=== PATIENT | male | born 1995 | race African-American/Black ===

== ENCOUNTER 2021-02-10 08:04 | Emergency (ER) | payer SELFPAY ==
--- NOTE | 2021-02-10 08:23 | EDM.PDOC ---
ED HPI GENERAL MEDICAL PROBLEM - General Chief Complaint: Head Injury Stated Complaint: MEDICAL CLEARENCE Time Seen by Provider: 02/10/21 08:10 Source of Information: Reports: Patient, Police History Limitations: Reports: No Limitations - History of Present Illness INITIAL COMMENTS - FREE TEXT/NARRATIVE: 26-year-old male presents to the ED per [place] police officers for medical clearance exam. Apparently they attended his place of residence this morning to serve paperwork in regards to involuntary committal. He ran from the police and thus was tackled to the ground. He presents in handcuffs behind his back. He is alert oriented and answers a few questions but is not overly chatty. He states he does not understand exactly why he has been brought here by the polic e. He denies any recent alcohol or drug use. Patient suffered a contusion to his right lower lip and chin during the incident but states no other injuries. Onset: Today, Sudden Onset Date: 02/10/21 Onset Time: 07:35 Duration: Minutes: Location: Reports: Face (Abrasion to mendez contusion right lower lip) Quality: Reports: Other Severity: Mild (Denies any pain) Improves with: Reports: None Worsens with: Reports: None Context: Reports: Trauma (Blunt force trauma to his mid facial structures when being tackled by police to the ground.). 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 [No Known Home Meds] 02/10/21 [History] Past Medical History - Past Health History Medical/Surgical History: Denies Medical/Surgical History Social & Family History - Tobacco Use Tobacco Use Status *Q: Never Tobacco User - Recreational Drug Use Recreational Drug Use: No - Living Situation & Occupation Living situation: Reports: Single (He reports he lives with coworkers) Occupation: Unemployed ED ROS GENERAL - Review of Systems Review Of Systems: See Below Constitutional: Denies: Fever, Chills, Malaise, Weakness, Decreased Appetite, Weight Loss HEENT: Reports: No Symptoms Respiratory: Reports: No Symptoms Cardiovascular: Reports: No Symptoms Endocrine: Reports: No Symptoms GI/Abdominal: Reports: No Symptoms : Reports: No Symptoms Musculoskeletal: Reports: No Symptoms Skin: Reports: No Symptoms Neurological: Reports: No Symptoms Psychiatric: Reports: No Symptoms Hematologic/Lymphatic: Reports: No Symptoms Immunologic: Reports: No Symptoms ED EXAM, HEAD INJURY - Physical Exam Exam: See Below Exam Limited By: Other (No smell of alcohol on his breath. He appears oriented to time person place and time. Temperature is 36.9 degrees. Heart rate was 114 and sinus at the bedside. Respiratory to 16 with O2 sats of 99% room air BP 07/07/1989) General Appearance: Alert, WD/WN, Anxious, Other (Temperature is 36.9.) Head: Atraumatic, Normocephalic, Facial Abrasions (Minimal abrasion chin. Slight contusion right lower lip.) Nexus Criteria: No: Posterior, Midline Cervical Tenderness, Evidence of Intoxication, Altered Level of Consciousness, Focal Neurological Deficit, Painful Distraction Injuries Eyes: Bilateral Eye: Normal Inspection (No blepharal pallor or scleral icterus), PERRL Ears: Normal External Exam Nose: Normal Inspection, Normal Mucousa, No Blood, Nasal Deformity Throat/Mouth: Normal Inspection, Normal Teeth, Normal Oropharynx, Lip Swelling (Minimal contusion right lower lip), Other (No dental or tongue injury.). No: Tongue Swelling Neck: Non-Tender, Full Range of Motion, Normal Alignment, Normal Inspection Respiratory: No Respiratory Distress, Lungs Clear, Normal Breath Sounds Cardiovascular: Normal Peripheral Pulses, Regular Rate, Rhythm, No Edema, No Gallop, No Murmur, No Rub GI/Abdominal Exam: Normal Bowel Sounds, Soft, Non-Tender, No Organomegaly, No Distention, No Abnormal Bruit Back Exam: Normal Inspection, Full Range of Motion. No: CVA Tenderness (L), CVA Tenderness (R) Extremities: Normal Inspection, Normal Range of Motion, Non-Tender, No Pedal Edema, Other (No injuries to his knees hips ankles or obvious wrist to his hands which are handcuffed behind his back.) Neurologic: No Motor/Sensory Deficits, Alert, Oriented x 3. No: Normal Mood/Affect, Motor Weakness, Sensory Deficit Skin: Normal Color, Warm/Dry, Other (Dry scaly skin both lower extremities) - Wheeler Coma Score Best Eye Response (Wyatt): (4) Open Spontaneously Best Verbal Response (Wheeler): (5) Oriented Best Motor Response (Wyatt): (6) Obeys Commands Wyatt Total: 15 Course - Vital Signs Last Recorded V/S: Last Vital Signs Temp 36.9 C 02/10/21 08:06 Pulse 114 H 02/10/21 08:06 Resp 16 02/10/21 08:06 BP 124/90 02/10/21 08:06 Pulse Ox 99 02/10/21 08:06 - Orders/Labs/Meds Orders: Active Orders 24 hr Category Date Time Status DRUG SCREEN, URINE [URCHEM] Stat Lab 02/10/21 08:48 Ordered Labs: Laboratory Tests 02/10/21 Range/Units 08:43 SARS-CoV-2 RNA (TRAVIS) Negative (NEGATIVE) - Radiology Interpretation Free Text/Narrative:: 26-year-old male of [place] descent presents to the ED per local police officers. They went to serve a warrant for him as there is apparently committal papers signed on this gentleman. Is unclear what psychiatric problems or drug substance abuse issues he has. He is alert oriented appears to be sober at this time. He has minimal injuries with a contusion to his right lower lip and abrasion to his chin but no other injuries identified. He will be released into police custody - Re-Assessments/Exams Free Text/Narrative Re-Assessment/Exam: 02/10/21 08:55 patient refuses to comply with any lab work evaluations or needle sticks. He did comply with a COVID-19 screen 02/10/21 09:12: Looking at the paperwork that accompanies the patient provided by police officers for involuntary commitment. There is not enough information provided to place this patient under involuntary committal at this time. There is no indication that he has a substance abuse disorder or has an underlying psychiatric illness for which she is not taking his medication etc. Patient would not allow us to talk to his mother in regards to his current state but he did speak to his mother in the room. I am therefore going to have [facility] personnel come up and do an evaluation and see if we can find out a definitive reason to place him in a psychiatric institute for evaluation. Patient will not allow lab work. COVID-19 screen is negative. 02/10/21 10:51 patient did open up to [facility] personnel. Seems to be a whole bunch of social issues with no place to live and no family members around. At this time they feel it is best if he goes to the residential crisis center for further evaluation and management. He will therefore be discharged from the emergency room. Departure - Departure Time of Disposition: 10:52 Disposition: Home, Self-Care 01 Condition: Fair Clinical Impression: Problem related to unspecified psychosocial circumstances - Discharge Information *PRESCRIPTION DRUG MONITORING PROGRAM REVIEWED*: Not Applicable *COPY OF PRESCRIPTION DRUG MONITORING REPORT IN PATIENT JEFF: Not Applicable Referrals: PCP,None [Primary Care Provider] - Forms: ED Department Discharge Additional Instructions: Evaluation in the emergency room this morning in regard to his being apprehended by police officers at the request of the court system through [facility]. It appears that this process was initiated by your parents or mother. It has been deemed that you does not have an inherent psyche Trevor illness or substance abuse problem that would warrant emergency committal to a psychiatric facility at this time. It is my understanding there are numerous psychosocial issues that need to be sorted out and you therefore will be discharged to the residential crisis center here in [place] through [facility] and human resources. You may return to the emergency room at any time if you are feeling suicidal or overwhelmed at any time. Sepsis Event Note (ED) - Evaluation Sepsis Screening Result: No Definite Risk - Focused Exam Vital Signs: Vital Signs Temp Pulse Resp BP Pulse Ox 02/10/21 08:06 36.9 C 114 H 16 124/90 99 - My Orders Last 24 Hours: My Active Orders 02/10/21 08:48 DRUG SCREEN, URINE [URCHEM] Stat - Assessment/Plan Last 24 Hours: My Active Orders 02/10/21 08:48 DRUG SCREEN, URINE [URCHEM] Stat
== END 2021-02-10 10:59 | disposition home or self-care (01) ==
LOC: JD.ED 08:04
DX: F28 Other psychotic disorder not due to a substance or known physiological condition (principal); S00.531A Contusion of lip, initial encounter; Z20.822 Contact with and (suspected) exposure to COVID-19; X58.XXXA Exposure to other specified factors, initial encounter
CPT/HCPCS: 99283; U0002